=== PATIENT | female | born 1960 | race Caucasian/White ===

== ENCOUNTER 2017-10-17 13:35 | Emergency (ER) | payer MEDICAID ==
[~2017-10-17] VITALS: Ht 160 cm; Wt 67.5 kg
[~2017-10-17 13:35] MED LIST: CIPR500T4 PO
[2017-10-17 13:38] VITALS: BP 120/65; PULSE 64; RESP 16; TEMP 97.7; O2SAT 98
[2017-10-17] MEDS ORDERED: LEVO.075 PO (13:53)
--- NOTE | 2017-10-17 14:47 | PD ---
HPI Chief Complaint: GI Complaint Time Seen by Provider: 14:02 Travel History International Travel<30 days: No Contact w/Intl Traveler<30days: No Traveled to known affect area: No History of Present Illness HPI 57-year-old female here for evaluation after she reportedly swallowed a possible metal brush bristle while at [email or web address] today. She reports she had pain in her throat after swallowing a bite of salad. On inspection of the salad she found a metal brush bristle which she believes she swallowed. She currently does not have any complaint. She denies sore throat, foreign body sensation in the throat, abdominal pain, nausea vomiting or diarrhea. PFSH Past Medical History Autoimmune Disease: Yes (LUPUS, FIBROMYALGIA) Cardiovascular Problems: Yes (MITRAL VALVE PROLAPSE ) Diminished Hearing: No Fibromyalgia: Yes Medical other: Yes ( LYMES DISEASE) Immunizations Current: Yes Thyroid Disease: Yes (HYPO ) Tetanus Vaccination: Unknown Influenza Vaccination: No ?: Not Menopausal: Yes Dilation and Curettage (D&C): Yes Past Surgical History Appendectomy: Yes Cholecystectomy: Yes Tonsillectomy: Yes Other Surgery: Yes (RIGHT THYROID REMOVED) Social History Alcohol Use: Yes (socially) Tobacco Use: No Substance Use: No Allergies-Medications (Allergen,Severity, Reaction): Coded Allergies: acetaminophen (Unverified Allergy, Unknown, RASH, 10/17/17) doxycycline (Unverified Allergy, Unknown, RASH, 10/17/17) erythromycin base (Unverified Allergy, Unknown, RASH, 10/17/17) hydrocodone (Unverified Allergy, Unknown, RASH, 10/17/17) minocycline (Unverified Allergy, Unknown, RASH, 10/17/17) sulfamethoxazole (Unverified Allergy, Unknown, RASH, 10/17/17) tigecycline (Unverified Allergy, Unknown, RASH, 10/17/17) trimethoprim (Unverified Allergy, Unknown, RASH, 10/17/17) vancomycin (Unverified Allergy, Unknown, RASH, 10/17/17) Reported Meds & Prescriptions Reported Meds & Active Scripts Active Reported Synthroid (Levothyroxine Sodium) 75 Mcg Tab 75 Mcg PO DAILY Review of Systems Except as stated in HPI: all other systems reviewed are Neg Respiratory: No: Shortness of Breath Gastrointestinal: No: Abdominal Pain Physical Exam Narrative GENERAL: Well-nourished, well-developed patient. SKIN: Focused skin assessment warm/dry. HEAD: Normocephalic. EYES: No scleral icterus. No injection or drainage. THROAT: No pharyngeal erythema or foreign body visualized NECK: Supple, trachea midline. No JVD or lymphadenopathy. CARDIOVASCULAR: Regular rate and rhythm without murmurs, gallops, or rubs. RESPIRATORY: Breath sounds equal bilaterally. No accessory muscle use. GASTROINTESTINAL: Abdomen soft, non-tender, nondistended. Data Data Last Documented VS Vital Signs Date Time Temp Pulse Resp B/P (MAP) Pulse Ox O2 Delivery O2 Flow Rate FiO2 10/17/17 13:38 97.7 64 16 120/65 (83) 98 MDM Medical Decision Making Medical Screen Exam Complete: Yes Emergency Medical Condition: Yes Differential Diagnosis Possible Ingested metal foreign body, esophageal abrasion, other Narrative Course 57-year-old female here for evaluation after she possibly swallowed a bristle from a metal brush while eating lunch at [employer]. She currently has no complaint. Her physical exam is benign. Her abdomen is soft and nontender. She denies any pain or shortness of breath. I do not believe imaging is indicated as patient is asymptomatic. Return precautions discussed with patient. She agrees to return if she develops abdominal pain, fever chills, blood in vomit or stool. Diagnosis Primary Impression: Ingestion of foreign body Qualified Codes: T18.9XXA - Foreign body of alimentary tract, part unspecified , initial encounter Referrals: Primary Care Physician Additional Instructions: Return to the emergency department if you developed fever, chills, abdominal pain, blood in vomit or stool. Follow-up with her primary doctor. Disposition: 01 DISCHARGE HOME Condition: Stable KyleheavenAmy RICHARD Oct 17, 2017 14:47
== END 2017-10-17 14:59 | disposition home or self-care (01) ==
LOC: PHEFT 13:35
DX: T18.9XXA Foreign body of alimentary tract, part unspecified, initial encounter (principal)
CPT/HCPCS: 99281

== ENCOUNTER 2017-12-01 11:29 | Emergency (ER) | payer MEDICAID ==
[~2017-12-01] VITALS: Ht 162.6 cm; Wt 67.0 kg
[~2017-12-01 11:29] MED LIST changes: -CIPR500T4 PO; +LEVO.075 PO
[2017-12-01 11:38] VITALS: BP 129/68; PULSE 77; RESP 16; TEMP 99; O2SAT 99
[2017-12-01 11:58] LABS: BILIRUBIN, URINE NEG (NEG); BLOOD, URINE MOD (NEG); GLUCOSE,URINE NEG (NEG); KETONE, URINE NEG (NEG); NITRITE,URINE NEG (NEG); PH, URINE 5.5 (5.0-8.5); URINE LEUKOCYTE ESTERASE LARGE (NEG)
[2017-12-01 12:10] LABS: URINE COLOR YELLOW (YELLW/STRAW)
[2017-12-01 12:11] LABS: WBC, URINE INNUM /hpf (0-5)
[2017-12-01 12:12] LABS: BACTERIA, URINE FEW /hpf
[2017-12-01 12:13] LABS: MUCUS URINE RARE /lpf (OCC)
[2017-12-01] MEDS ORDERED: CEPH-460 PO (12:23)
[2017-12-01] MEDS ORDERED: MEDR4PAK PO (12:23)
--- NOTE | 2017-12-01 12:23 | PD ---
HPI Chief Complaint: Cold / Flu Symptoms Time Seen by Provider: 12:12 Travel History International Travel<30 days: No Contact w/Intl Traveler<30days: No Traveled to known affect area: No History of Present Illness HPI 57-year-old female coughing. She initially had symptoms of urinary tract infection frequency and burning. This is improved now she is coughing. She is bringing up some thick phlegm. She does not smoke. She has a history of bronchial asthma. She has a history of lupus and fibromyalgia. She has multiple allergies PFSH Past Medical History Autoimmune Disease: Yes (LUPUS, FIBROMYALGIA) Cardiovascular Problems: Yes (MITRAL VALVE PROLAPSE ) Diminished Hearing: No Fibromyalgia: Yes Immunizations Current: Yes Thyroid Disease: Yes (HYPO ) Influenza Vaccination: No ?: Not Menopausal: Yes Dilation and Curettage (D&C): Yes Past Surgical History Appendectomy: Yes Cholecystectomy: Yes Tonsillectomy: Yes Other Surgery: Yes (RIGHT THYROID REMOVED) Social History Alcohol Use: Yes (socially) Tobacco Use: No Substance Use: No Allergies-Medications (Allergen,Severity, Reaction): Coded Allergies: acetaminophen (Unverified Allergy, Unknown, RASH, 12/01/17) doxycycline (Unverified Allergy, Unknown, RASH, 12/01/17) erythromycin base (Unverified Allergy, Unknown, RASH, 12/01/17) hydrocodone (Unverified Allergy, Unknown, RASH, 12/01/17) minocycline (Unverified Allergy, Unknown, RASH, 12/01/17) sulfamethoxazole (Unverified Allergy, Unknown, RASH, 12/01/17) tigecycline (Unverified Allergy, Unknown, RASH, 12/01/17) trimethoprim (Unverified Allergy, Unknown, RASH, 12/01/17) vancomycin (Unverified Allergy, Unknown, RASH, 12/01/17) Reported Meds & Prescriptions Reported Meds & Active Scripts Active Reported Synthroid (Levothyroxine Sodium) 75 Mcg Tab 75 Mcg PO DAILY Review of Systems General / Constitutional: No: Fever, Chills Eyes: No: Diploplia HENT: No: Headaches, Vertigo Cardiovascular: No: Chest Pain or Discomfort Respiratory: Positive: Cough, Wheezing, No: Shortness of Breath Gastrointestinal: No: Vomiting, Diarrhea Genitourinary: Positive: Dysuria Musculoskeletal: No: Myalgias Skin: No Rash, No Itching Hematologic/Lymphatic: No: Easy Bruising Physical Exam Narrative GENERAL: Well-developed female SKIN: Focused skin assessment warm/dry. HEAD: Atraumatic. Normocephalic. EYES: Pupils equal and round. No scleral icterus. No injection or drainage. ENT: No nasal bleeding or discharge. Mucous membranes pink and moist. NECK: Trachea midline. No JVD. CARDIOVASCULAR: Regular rate and rhythm. No murmur appreciated. RESPIRATORY: No accessory muscle use. Clear to auscultation. There is an occasional wheeze Breath sounds equal bilaterally. GASTROINTESTINAL: Abdomen soft, non-tender, nondistended. Hepatic and splenic margins not palpable. MUSCULOSKELETAL: No obvious deformities. No clubbing. No cyanosis. No edema. NEUROLOGICAL: Awake and alert. No obvious cranial nerve deficits. Motor grossly within normal limits. Normal speech. PSYCHIATRIC: Appropriate mood and affect; insight and judgment normal. Data Data Last Documented VS Vital Signs Date Time Temp Pulse Resp B/P (MAP) Pulse Ox O2 Delivery O2 Flow Rate FiO2 12/01/17 11:38 99.0 77 16 129/68 (88) 99 Orders Orders Urinalysis - C+S If Indicated (12/01/17 11:41) Urine Culture (12/01/17 11:40) Cephalexin (Keflex) (12/01/17 12:30) Labs Laboratory Tests Test 12/01/17 11:40 Urine Collection Type VOIDED Urine Color YELLOW Urine Turbidity CLOUDY Urine pH 5.5 Urine Specific [place] 1.023 Urine Protein TRACE mg/dL Urine Glucose (UA) NEG mg/dL Urine Ketones NEG mg/dL Urine Occult Blood MOD Urine Nitrite NEG Urine Bilirubin NEG Urine Leukocyte Esterase LARGE Urine RBC 4-9 /hpf Urine WBC INNUM /hpf Urine Squamous Epithelial Cells 3-5 /hpf Urine Bacteria FEW /hpf Urine Mucus RARE /lpf Microscopic Urinalysis Comment CULTURE INDICATED MDM Medical Decision Making Medical Screen Exam Complete: Yes Emergency Medical Condition: Yes Medical Record Reviewed: Yes Differential Diagnosis Differential includes UTI, pneumonia, bronchitis Narrative Course Urinalysis does show urinary tract infection. She'll be put on Keflex also prescribe Solu-Medrol for her bronchial asthma Diagnosis Primary Impression: UTI (urinary tract infection) Additional Impression: Bronchitis Scripts Methylprednisolone Dosepak (Medrol Dosepak) 4 Mg Dspk 4 MG PO DIRECTED, #1 DSPK 0 Refills Per Pharmacist direction Prov: Mainor Villasenor MD 12/01/17 Cephalexin (Keflex) 500 Mg Capsule 500 MG PO Q6H for Infection for 7 Days, #28 CAP 0 Refills Prov: Mainor Villasenor MD 12/01/17 Disposition: 01 DISCHARGE HOME Condition: Stable Mainor Villasenor MD Dec 01, 2017 12:23
[2017-12-01] MEDS ORDERED: CEPHALEXIN MONOHYDRATE 500 MG CAP PO ONE (12:30)
== END 2017-12-01 12:44 | disposition home or self-care (01) ==
LOC: PHED 11:29
DX: N39.0 Urinary tract infection, site not specified (principal); J45.909 Unspecified asthma, uncomplicated; M32.9 Systemic lupus erythematosus, unspecified; M79.7 Fibromyalgia; I34.1 Nonrheumatic mitral (valve) prolapse
CPT/HCPCS: 81001; 87086; 99284